=== PATIENT | female | born 1985 | race Caucasian/White ===

== ENCOUNTER 2017-08-21 13:45 | Emergency (ER) | END 2017-08-21 16:46 | disposition home or self-care (01) ==

== ENCOUNTER 2018-02-22 20:03 | Emergency (ER) | payer SELFPAY ==
[~2018-02-22 20:03] MED LIST: IBUP-1542 PO
== END 2018-02-22 21:05 | disposition left against medical advice (07) ==
LOC: E/R 20:03
DX: Z53.21 Procedure and treatment not carried out due to patient leaving prior to being seen by health care provider (principal)